=== PATIENT | female | born 1965 | race Caucasian/White ===

== ENCOUNTER 2017-04-06 12:38 | Emergency (ER) | payer BC, MEDICARE ==
[2017-04-06 12:57] VITALS: TEMP 98.4
--- NOTE | 2017-04-06 13:21 | ED ---
Fall HPI - General Chief Complaint: Fall Stated Complaint: Fall Time Seen by Provider: 04/06/17 12:38 Source: patient, EMS, RN notes reviewed Mode of arrival: EMS - History of Present Illness Initial Comments: This is a 51-year-old female who states she slipped on ice last evening around 7 :30 PM given a face plant on the concrete. She states she hit her face she does not believe she was knocked out. She complains some dizziness afterwards. She complained of some dental pain to her front teeth. Of note she apparently called a friend last evening and had angry confrontation with the [employer] the incident she does not recall any of this. Per paramedics she seemed to have atrial fibrillation on their monitor on my review it appears to be sinus rhythm with artifact present.. Patient has no prior history of cardiac dysrhythmia. At this time she complains of facial pain posterior neck pain and left anterior lateral rib pain just below her left breast. She denies any pain in her abdomen pelvis lower extremities. No loss of function. MD Complaint: fall - Related Data Home Medications Medication Instructions Recorded Confirmed ALPRAZolam [Xanax] 1 mg PO TID PRN 04/06/17 04/06/17 Hydrochlorothiazide 25 mg PO DAILY 04/06/17 04/06/17 Ranitidine HCl [Zantac] 150 mg PO BID 04/06/17 04/06/17 amLODIPine [Norvasc] 5 mg PO DAILY 04/06/17 04/06/17 oxyCODONE HCL [Oxyir] 5 mg PO Q4HR PRN 04/06/17 04/06/17 Previous Rx's Medication Instructions Recorded Ibuprofen 800 mg PO Q6HR PRN #20 tablet 04/06/17 Allergies Allergy/AdvReac Type Severity Reaction Status Date / Time latex Allergy Rash/Hives Verified 04/06/17 13:08 Penicillins Allergy Unknown Verified 04/06/17 13:08 Childhood Review of Systems ROS Statement: Those systems with pertinent positive or pertinent negative responses have been documented in the HPI. ROS Other: All systems not noted in ROS Statement are negative. Past Medical History Past Medical History: Hypertension History of Any Multi-Drug Resistant Organisms: None Reported Past Surgical History: Adenoidectomy, Tonsillectomy Additional Past Surgical History / Comment(s): colorectal surg x2 Past Psychological History: No Psychological Hx Reported Smoking Status: Never smoker Past Alcohol Use History: Daily Past Drug Use History: None Reported General Exam - General Exam Comments Initial Comments: This is a well-developed well-nourished awake alert oriented 3 female she demonstrates a Arlene Coma Scale of 15. She does demonstrate abrasions over the nose and filtrum area. A cervical collar is in place. Limitations: no limitations General appearance: alert, in no apparent distress Head exam: Present: normocephalic, other Eye exam: Present: PERRL, EOMI ENT exam: Present: mucous membranes dry, TM's normal bilaterally, other ( Tenderness palpation over the incisors others no evidence of any fracture no bleeding no interruption of the gumline.) Neck exam: Present: normal inspection (Maria Dolores over the posterior aspect of the paraspinous muscles in the mid C-spine. No definite spinous process tenderness. ), tenderness Respiratory exam: Present: normal lung sounds bilaterally, chest wall tenderness (Tenderness to the anterior lateral inferior chest wall just below the left breast along the costal chondral margin. No definite step-off or crepitation no bruising seen). Absent: respiratory distress, wheezes, rales, rhonchi, stridor Cardiovascular Exam: Present: normal rhythm, tachycardia GI/Abdominal exam: Present: soft, normal bowel sounds. Absent: distended, tenderness, guarding, rebound, rigid Rectal exam: Present: deferred Extremities exam: Present: normal inspection, full ROM, normal capillary refill. Absent: tenderness Back exam: Present: full ROM. Absent: tenderness, CVA tenderness (R), CVA tenderness (L), muscle spasm, paraspinal tenderness, vertebral tenderness, rash noted Neurological exam: Present: alert, oriented X3, CN II-XII intact Psychiatric exam: Present: normal affect, normal mood Skin exam: Present: warm, dry, normal color. Absent: intact Course Vital Signs 04/06/17 04/06/17 04/06/17 12:44 13:58 15:10 Temperature 98.4 F Pulse Rate 105 H 100 102 H Respiratory 18 18 20 Rate Blood Pressure 153/92 140/90 128/79 O2 Sat by Pulse 100 97 99 Oximetry Medical Decision Making - Medical Decision Making I did discuss findings with the patient including hypokalemia that she has have magnesium supplements at home. She will be discharged he will follow-up with her dentist. No evidence of any tooth fractures at this time there was likely a mild avulsion injury. The dentition is to be intact at this time and in place. - Lab Data Result diagrams: 04/06/17 13:00 04/06/17 13:58 Lab Results 04/06/17 04/06/17 04/06/17 Range/Units 13:00 13:58 13:58 WBC 9.7 (3.8-10.6) k/uL RBC 4.41 (3.80-5.40) m/uL Hgb 15.3 (11.4-16.0) gm/dL Hct 44.4 (34.0-46.0) % MCV 100.7 H (80.0-100.0) fL MCH 34.7 (25.0-35.0) pg MCHC 34.5 (31.0-37.0) g/dL RDW 13.9 (11.5-15.5) % Plt Count 228 (150-450) k/uL Neutrophils % 77 % Lymphocytes % 16 % Monocytes % 4 % Eosinophils % 2 % Basophils % 1 % Neutrophils # 7.5 (1.3-7.7) k/uL Lymphocytes # 1.5 (1.0-4.8) k/uL Monocytes # 0.4 (0-1.0) k/uL Eosinophils # 0.2 (0-0.7) k/uL Basophils # 0.1 (0-0.2) k/uL Macrocytosis Slight Sodium 143 (137-145) mmol/L Potassium 3.1 L (3.5-5.1) mmol/L Chloride 100 (98-107) mmol/L Carbon Dioxide 28 (22-30) mmol/L Anion Gap 15 mmol/L BUN 4 L (7-17) mg/dL Creatinine 0.72 (0.52-1.04) mg/dL Est GFR (MDRD) Af Amer >60 (>60 ml/min/1.73 sqM) Est GFR (MDRD) Non-Af >60 (>60 ml/min/1.73 sqM) Glucose 132 H (74-99) mg/dL Calcium 9.9 (8.4-10.2) mg/dL Magnesium 1.7 (1.6-2.3) mg/dL Total Bilirubin 1.0 (0.2-1.3) mg/dL AST 359 H (14-36) U/L ALT 176 H (9-52) U/L Alkaline Phosphatase 129 H (38-126) U/L Total Creatine Kinase 43 (30-135) U/L CK-MB (CK-2) 0.6 (0.0-2.4) ng/mL CK-MB (CK-2) Rel Index 1.4 Total Protein 7.5 (6.3-8.2) g/dL Albumin 4.2 (3.5-5.0) g/dL Amylase 35 (30-110) U/L Lipase 85 (23-300) U/L - EKG Data -: EKG Interpreted by Me EKG shows normal: sinus rhythm (Sinus tachycardia rate of 102 appear interval 160 QRS duration 78 QT since QTC of 392/510 st-t wave changes) - Radiology Data Radiology results: report reviewed (I did review the imaging and reports are is no evidence of any acute fractures or subluxations. No evidence of any rib fractures.), image reviewed Disposition Clinical Impression: Fall, Facial contusion, Cervical strain, acute, Hypokalemia, Dental trauma Disposition: HOME SELF-CARE Condition: Good Instructions: Facial Contusion (ED), Hypokalemia (ED), Acute Dental Trauma (ED) Prescriptions: Ibuprofen 800 mg PO Q6HR PRN #20 tablet PRN Reason: Pain Referrals: Nonstaff,Physician [Primary Care Provider] - 1-2 days Branden Hollins DDS [STAFF PHYSICIAN] - 1-2 days
[2017-04-06 13:34] LABS: Basophils # (A) 0.1 k/uL (0-0.2); Basophils % (A) 1 %; Eosinophils # (A) 0.2 k/uL (0-0.7); Eosinophils % (A) 2 %; HCT 44.4 % (34.0-46.0); HGB 15.3 gm/dL (11.4-16.0); Lymphocytes # (A) 1.5 k/uL (1.0-4.8); Lymphocytes % (A) 16 %; MCH 34.7 pg (25.0-35.0); MCHC 34.5 g/dL (31.0-37.0); MCV 100.7 fL (80.0-100.0); Macrocytosis Slight; Mean Platelet Volume 7.9; Monocytes # (A) 0.4 k/uL (0-1.0); Monocytes % (A) 4 %; Neutrophils # (A) 7.5 k/uL (1.3-7.7); Neutrophils % (A) 77 %; Platelet Count 228 k/uL (150-450); RBC 4.41 m/uL (3.80-5.40); RDW 13.9 % (11.5-15.5); WBC 9.7 k/uL (3.8-10.6)
--- NOTE | 2017-04-06 14:10 | CT ---
EXAMINATION TYPE: CT brain cspine wo con, CT facial bones wo con DATE OF EXAM: 04/06/2017 COMPARISON: NONE HISTORY: Patient complains of headache and posterior neck pain post fall last night. (accession [id number]), Patient complains of anterior dental pain post fall last night. Patient has multiple facial ab rasions. (accession [id number]) CT DLP: 1225.5 (accession [id number]), 575.3 (accession [id number]) mGycm. Automated Exposure Control for Dose Reduction was Utilized. TECHNIQUE: CT scan of the head , facial bones, and cervical spine are all performed without contrast. FINDINGS: There is no acute intracranial hemorrhage or midline shift identified. There is ventricul ar and sulcal prominence consistent with diffuse cerebral atrophy. The calvarium is intact. Nasal bones are intact. Orbital floors and jansen are intact. The globes are intact bilaterally. Intra conal fat is preserved bilaterally. The zygomatic arches are intact. Pterygoid plates are intact. The mandible is intact. Temporomandibular joints are maintained bilaterally. There is small mucous reten tion cyst or polyp in the posterior right ethmoid sinus axial image 53. Remainder paranasal sinuses a re clear. Cervical spine is visualized in its entirety from C1 through upper thoracic levels and demonstrates straightening alignment without evidence of acute fracture or dislocation. Prevertebral soft tissue appears within normal limits. The C1-C2 articulation is within normal limits on the coronal images. Vertebral body heights are maintained. There is mild to moderate disc space narrowing and spurring C5 -C6 level. There is moderate disc space narrowing and spurring C6-C7 level. Posterior spur disc compl exes are effacing anterior thecal sac at these levels on sagittal images. Review of axial images show uncovertebral facet degenerative changes bilaterally at C3-C4 level and a t left C4-C5 level contributing to neural foraminal narrowing at these levels. There is calcification of asymmetrically prominent left thyroid, possible calcified nodules. Right thyroid is felt surgical ly absent. Correlate clinically. Consider ultrasound correlation. Lung apices are clear. IMPRESSION: 1. There is no acute fracture or dislocation evident in the cervical spine. Multilevel degenerative c hanges are noted. 2. No acute intracranial hemorrhage or midline shift is seen. 3. No acute facial bone fracture or dislocation is seen.
[2017-04-06 14:17] LABS: ALT 176 U/L (9-52); AST 359 U/L (14-36); Albumin 4.2 g/dL (3.5-5.0); Alkaline Phosphatase 129 U/L (38-126); Amylase 35 U/L (30-110); Anion Gap 15 mmol/L; Blood Urea Nitrogen 4 mg/dL (7-17); Calcium 9.9 mg/dL (8.4-10.2); Carbon Dioxide 28 mmol/L (22-30); Chloride 100 mmol/L (98-107); Glucose 132 mg/dL (74-99); Lipase 85 U/L (23-300); Magnesium 1.7 mg/dL (1.6-2.3); Potassium 3.1 mmol/L (3.5-5.1); Sodium 143 mmol/L (137-145); Total Protein 7.5 g/dL (6.3-8.2)
--- NOTE | 2017-04-06 14:44 | XR ---
EXAMINATION TYPE: XR ribs LT w pa chest xray DATE OF EXAM: 04/06/2017 COMPARISON: NONE HISTORY: Pain post fall TECHNIQUE: PA view of the chest and 4 views of the left ribs are submitted FINDINGS: Lungs are clear. No consolidation, pleural effusion or pneumothorax. Visualized rib cage intact. IMPRESSION: No acute displaced rib fracture.
[2017-04-06 14:48] LABS: Creatine Kinase MB 0.6 ng/mL (0.0-2.4)
[2017-04-06 15:10] VITALS: BP 128/79; PULSE 102; RESP 20
== END 2017-04-06 15:31 | disposition home or self-care (01) ==
LOC: EC 12:38
DX: S16.1XXA Strain of muscle, fascia and tendon at neck level, initial encounter (principal); S09.93XA Unspecified injury of face, initial encounter; S00.83XA Contusion of other part of head, initial encounter; E87.6 Hypokalemia; S00.31XA Abrasion of nose, initial encounter; R00.0 Tachycardia, unspecified; R40.2412 Glasgow coma scale score 13-15, at arrival to emergency department; I10 Essential (primary) hypertension; Z79.899 Other long term (current) drug therapy; Z88.0 Allergy status to penicillin; Z91.040 Latex allergy status; W00.0XXA Fall on same level due to ice and snow, initial encounter; Y92.89 Other specified places as the place of occurrence of the external cause
CPT/HCPCS: 36415; 70450; 70486; 72125; 80053; 82150; 82550; 82553; 83690; 83735; 85025; 93005; 99285